=== PATIENT | female | born 1945 | race Caucasian/White ===

== ENCOUNTER 2017-06-25 07:46 | Outpatient (CLI) | payer OTHER | END 2017-06-25 15:55 | disposition home or self-care (01) | LOC: TOM 07:46 | DX: K56.50 Intestinal adhesions [bands], unspecified as to partial versus complete obstruction (principal); R19.4 Change in bowel habit; K63.5 Polyp of colon; Z12.11 Encounter for screening for malignant neoplasm of colon ==